=== PATIENT | male | born 1975 ===

== ENCOUNTER 2016-12-20 05:51 | Inpatient (IN) | payer OTHER ==
[2016-12-20] MEDS ORDERED: Absorbable Gelatin Sponge Size 100 ONE (08:02)
[2016-12-20] MEDS ORDERED: Vancomycin 1 g Inj ONE (08:02)
[2016-12-20] MEDS ORDERED: Bupivacaine 0.5% Inj(30mL) ONE (08:03)
[2016-12-20] MEDS ORDERED: ceFAZolin IV 2 gm in Dextrose 2 GM/50 ML BAG IVPB ONE (08:04)
[2016-12-20] MEDS ORDERED: Bacitracin Ointment 30 GM TUBE ONE (08:04)
[2016-12-20] MEDS ORDERED: Sodium Chloride 0.9% 20 ML IV ONE ×2 (08:04→11:43)
[2016-12-20] MEDS ORDERED: Thrombin Topical 5,000 IU Spray Kit ONE (08:04)
[2016-12-20] MEDS ORDERED: Lidocaine/Epi 1% 1:100000 20 ML IJ ONE (08:21)
[2016-12-20] MEDS ORDERED: Bupivacaine Liposomal Inj 20 ml INFIL ONE (08:25)
[2016-12-20] MEDS ORDERED: Bacitracin 50,000 UNIT in Sodium Chloride 0.9% Irrig 1,000 ML IR SCH (08:30)
[2016-12-20] MEDS ORDERED: Propofol 10 mg/ml 1,000 MG/100 ML VIAL ONE ×2 (08:54→11:02)
[2016-12-20] MEDS ORDERED: Remifentanil 1 mg/3 ml Vial IV ONE ×2 (08:55→11:16)
[2016-12-20] MEDS ORDERED: Propofol 10 mg/ml Inj (20 ML) ONE ×2 (09:03→09:50)
[2016-12-20] MEDS ORDERED: Midazolam 2 MG/2 ML VIAL ONE (09:03)
[2016-12-20] MEDS ORDERED: Lactated Ringer's 1,000 ML IV ONE ×2 (09:10→09:15)
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
[2016-12-20] MEDS ORDERED: Dexamethasone 4 mg/1 ml IVP PRN (12:49)
[2016-12-20] MEDS: HYDROmorphone 0.5 mg/0.5 ml ISec IVP PRN ×2 (13:00→13:58)
[2016-12-20] MEDS: Morphine Monoject Barrel PCA 1mg/ml IV PRN (15:15)
[2016-12-20] MEDS: Potassium Ch 20mEq in D5-1/2NS 1,000 ML IV SCH (21:50)
--- NOTE | 2016-12-21 07:31 | OP ---
PROCEDURE DATE: 12/20/2016 PREOPERATIVE DIAGNOSIS: Lumbar disk derangement with chronic low back pain. POSTOPERATIVE DIAGNOSIS: Lumbar disk derangement with chronic low back pain. PROCEDURE: L4-5, decompression diskectomy, interbody fusion, segmental pedicle screw fixation, and posterolateral fusion with iliac autograft. SURGEON: Rito Garcia MD CO-SURGEON: Dr. Adan ANESTHESIA: General endotracheal. ESTIMATED BLOOD LOSS: 250 mL, not enough blood was connected to return to the patient. COMPLICATIONS: None. JUSTIFICATION: The patient is status post an accident suffering from chronic discogenic severe left sided low back pain. MRI documented a very prominent and very eccentric left annular tear at the L4-5 level. He failed rather extensive conservative workup. He was offered the possibility of operative intervention by discectomy, fixation, and fusion. The nature of this procedure in detail was relayed to the patient including alternatives, potential risks, complications, realistic chance of success, residential outlook. All of the above was done through a frame nailer. He fully understood all the above and elected to proceed as offered. DESCRIPTION OF PROCEDURE: The patient was taken to the operating room. He was hooked up to neurophysiological monitoring, intubated and anesthetized, carefully turned onto prone position on a Jerad frame. Care was taken to protect his face, eyes, endotracheal tube, and all bony prominences. The entire low back area was then scrubbed with acetone, scrubbed, painted, and draped in the usual sterile manner. Incision was localized with lateral fluoroscopy. The incision was made overlying the spinous processes of L4 and L5. The Bovie cautery was used to incise the fascia, strip the paraspinal muscles off the spinous processes and laminae again at L4 and L5. Deep self-retaining retractors were placed. The exposure was widened out laterally bilaterally with the use of Osborne elevators and Bovie cautery to expose the transverse processes of L4 and L5 bilaterally. Confirmatory x-ray was taken. The entire L4-5 facet was exposed as well. Bleeding controlled throughout with the Bovie cautery and thrombinated Gelfoam. At this point, once the exposure was completed, we performed bone marrow harvestation. We placed a 5-gauge trocar directly through the fascia into the right superior posterior iliac crest, aspirated approximately 90 mL of bone marrow. This was then spun down to obtain the bone marrow mesenchymal cells that were later used in the bone grafting. At this point, the decompression was begun with the use of the Leksell rongeur. The L5 spinous process and the inferior spinous process of L4 were removed with the Leksell rongeur. The Leksell was further used to thin down the L4 lamina. This bone was later saved for using in the bone graft. Various sized Kerrison rongeurs were then used to perform the laminotomy removing the inferior two-thirds of the L4 lamina, extending this out widely bilaterally to perform a generous medial facetectomy. Foraminotomies was performed at exiting 3 roots. A fair amount of the lateral disk was then exposed with some of the epidural veins coagulated. At this point, we began the discectomy gently retracting the left L5 nerve root easily. The disk was then incised grossly, and the disk material, with the use of pituitary rongeurs and various curettes. An 8 through 11-mm scrapers were then used to further remove disk material, annulus and begin the decortication which was then completed with large curette. The identical procedure was performed back on the right side after which, the disk space was then packed with bone grafting material which included products of decompression, additional allograft, additional bone matrix proteins as well as mesenchymal cell impregnated sponges, liberally packed into the disk space with 69 x 11 mm carbon-fiber fusion cage packed with bone grafting material. This was tapped into the interspace as well as well seated and countersunk. The identical graft and implant was placed back on the original left side. Visual inspection and lateral fluoroscopy confirmed excellent position of both of these implants. At this point, attention was turned to the placement of the pedicular screws. First the high-speed drill was used to decorticate the lateral gutters, which included the transverse processes, lateral pars, and facet. Using the technique of visually and fluoroscopically to identify the pedicular entrance, we used the drill to remove cortical bone passing a gear shift down the barrel of the pedicle into the vertebral body. We then used a ball-tip probe to stimulate the passage way to ensure there was no evidence of breach and then placed the appropriate-sized screw. Additionally, the gear shift and the screws were all stimulated with electrical current while monitoring lower extremity EMG to ensure there was no evidence of breach. Using this technique, a 6.0 diameter screws of 50 and 45 mm length were placed at L4, and a 50 mm length bilaterally at L5. No screw elicited any meaningful EMG activity, and both lateral and AP x-rays confirmed excellent position of all 4 screws. We then placed the appropriate-sized locking narda into the screw head receptacles on each side, locking nuts were placed and torque-wrenched tight. We then placed the appropriate-sized cross connector and torque-wrenched its three connection sites as well. Final lateral and AP x-rays confirmed excellent position of the entire construct. At this point, we liberally packed all remaining graft material into the lateral gutters to achieve the posterolateral fusion. We ensured there was no bony material or anything else foreign in the peridural area. Hemostasis was then achieved with thrombinated powdered Gelfoam and thrombinated Gelfoam placed in the posterior epidural space. Retractors were withdrawn. The muscle re-approximated using interrupted Vicryl, the fascia closed using tight interrupted #0 Vicryl stitch. The wound irrigated with antibiotic solution and the subcu closed in 2 separate layers of 2-0 Vicryl. The skin closed with a running 3-0 Monocryl stitch, benzoin, and Steri-Strips. The dressings were applied. The patient was turned back onto a supine position on a stretcher. He was extubated without difficulty. He was noted to be moving all groups of both lower extremities with good strength on his way to the recovery room. All counts were correct. Final SSEPs and EMGs were at baseline. There were no complications. Rito Garcia MD
[2016-12-21] MEDS: Potassium Ch 20mEq in D5-1/2NS 1,000 ML IV SCH ×2 (07:58→21:19)
--- NOTE | 2016-12-21 09:11 | RAD ---
PROCEDURE: Intraoperative Fluoroscopy. HISTORY: LUMBAR DISC derangement FINDINGS: Fluoroscopic assistance was provided for L4-5 vertebral body fusion and fixation. Please refer to the operative report from
[2016-12-21] MEDS: Morphine Monoject Barrel PCA 1mg/ml IV PRN ×3 (10:50→21:43)
--- NOTE | 2016-12-21 12:58 | CP.PCM.PN ---
Subjective - Date & Time of Evaluation Date of Evaluation: 12/21/16 Time of Evaluation: 12:56 - Subjective Subjective: POD 1 af vss c/o inc pain no LE complaints stood with PT,eating 5/5 throughout sens grossly intact P cont PT/mobilization cont RECONDITIONING ASSOCIATE Objective - Vital Signs/Intake and Output Vital Signs (last 24 hours): Temp Pulse Resp BP Pulse Ox 99.4 F 116 H 20 109/66 98 12/21/16 08:34 12/21/16 08:34 12/21/16 08:34 12/21/16 08:34 12/21/16 08:34 Intake and Output: 12/21/16 12/21/16 06:59 18:59 Intake Total 760 Output Total 900 Balance -140 - Medications Medications: Current Medications Docusate Sodium (Colace) 100 mg PO BID [facility] Last Admin: 12/21/16 10:22 Dose: 100 mg Potassium Chloride/Dextrose/Sod Cl (Potassium Chl 20 Meq In D5-1/2ns) 1,000 mls @ 100 mls/hr IV .Q10H [facility] Last Admin: 12/21/16 07:58 Dose: 100 mls/hr Morphine Sulfate/Sodium Chloride (Morphine Dental Assistant Medical Assistant Monoject Barrel) 30 mg IV Q4H PRN; Protocol PRN Reason: Pain, moderate (4-7) Stop: 12/21/16 13:38 Last Admin: 12/21/16 10:50 Dose: 30 mg Ondansetron HCl (Zofran Inj) 4 mg IVP Q8H PRN PRN Reason: Nausea/Vomiting Pneumococcal Polyvalent Vaccine (Pneumovax 23 Vaccine) 0.5 ml IM .ONCE ONE Stop: 12/22/16 10:46
[2016-12-22] MEDS: Potassium Ch 20mEq in D5-1/2NS 1,000 ML IV SCH ×3 (05:38→17:33)
[2016-12-22] MEDS ORDERED: Pneumococcal 23-Valent Vaccine IM ONE (10:45)
[2016-12-22] MEDS ORDERED: Influenza Vaccine 60 mcg/0.5 mL SYR (4YR UP) IM ONE (10:45)
--- NOTE | 2016-12-22 10:56 | CP.PCM.PN ---
Subjective - Date & Time of Evaluation Date of Evaluation: 12/22/16 Time of Evaluation: 10:54 - Subjective Subjective: SPINE - POD #2 Pt amb in hallway with PT. No complaints. Voiding. + flatus. VSS. Afebrile. Neuro grossly intact. Incision clean and dry. Plan: Cont w therapy. Change to oral analgesics. Hopeful rehab transfer in am. Objective - Vital Signs/Intake and Output Vital Signs (last 24 hours): Temp Pulse Resp BP Pulse Ox 98.8 F 115 H 18 121/77 98 12/22/16 07:40 12/22/16 07:40 12/22/16 07:40 12/22/16 07:40 12/22/16 07:40 Intake and Output: 12/22/16 12/22/16 06:59 18:59 Intake Total 800 Output Total 800 Balance 0 - Medications Medications: Current Medications Docusate Sodium (Colace) 100 mg PO BID [facility] Last Admin: 12/22/16 10:24 Dose: 100 mg Potassium Chloride/Dextrose/Sod Cl (Potassium Chl 20 Meq In D5-1/2ns) 1,000 mls @ 100 mls/hr IV .Q10H [facility] Last Admin: 12/22/16 05:38 Dose: 100 mls/hr Morphine Sulfate/Sodium Chloride (Morphine Mine Car Dispatcher Monoject Barrel) 30 mg IV Q4H PRN; Protocol PRN Reason: Pain Last Admin: 12/21/16 21:43 Dose: 30 mg Ondansetron HCl (Zofran Inj) 4 mg IVP Q8H PRN PRN Reason: Nausea/Vomiting
[2016-12-22] MEDS ORDERED: Oxycodone/Acetaminophen 5/325 mg Tab PO PRN (10:57)
[2016-12-22] MEDS: oxyCODONE 20 mg ER Tab (oxyCONTIN) PO SCH ×2 (12:00→22:26)
[2016-12-22] MEDS: Psyllium Packet PO SCH (12:01)
[2016-12-22] MEDS: Oxycodone/Acetaminophen 5/325 mg Tab PO PRN (15:17)
[2016-12-23] MEDS: Potassium Ch 20mEq in D5-1/2NS 1,000 ML IV SCH (02:45)
[2016-12-23] MEDS: Psyllium Packet PO SCH (09:49)
[2016-12-23] MEDS: Oxycodone/Acetaminophen 5/325 mg Tab PO PRN (09:49)
[2016-12-23] MEDS: oxyCODONE 20 mg ER Tab (oxyCONTIN) PO SCH ×2 (10:58→21:20)
[2016-12-23] MEDS ORDERED: clonazePAM 0.25 MG TAB PO SCH ×2 (12:30→21:00)
--- NOTE | 2016-12-23 14:14 | CP.PCM.PN ---
Subjective - Date & Time of Evaluation Date of Evaluation: 12/23/16 Time of Evaluation: 14:10 - Subjective Subjective: SPINE - POD #3 Pt resting in bed. States he is feeling much better.Had therapy earlier and did stairs. Has had episodes of tachycardia. Afebrile. Moves all extremities actively. Neuro intact. Plan: Will check H/H. Restarted his Klonopin and Celexa. If stable will d/c in am to home. Objective - Vital Signs/Intake and Output Vital Signs (last 24 hours): Temp Pulse Resp BP Pulse Ox 98.6 F 88 17 116/73 94 L 12/23/16 07:00 12/23/16 10:58 12/23/16 07:00 12/23/16 10:58 12/23/16 07:00 Intake and Output: 12/23/16 12/23/16 06:59 18:59 Intake Total 1320 Output Total 800 Balance 520 - Medications Medications: Current Medications Citalopram Hydrobromide (Celexa) 20 mg PO DAILY [facility] Clonazepam (Klonopin- Half Tab) 0.25 mg PO DAILY [facility] Docusate Sodium (Colace) 100 mg PO BID [facility] Last Admin: 12/23/16 09:48 Dose: 100 mg Ondansetron HCl (Zofran Inj) 4 mg IVP Q8H PRN PRN Reason: Nausea/Vomiting Oxycodone HCl (Oxycontin Extended Release Tab) 20 mg PO Q12 [facility] Last Admin: 12/23/16 10:58 Dose: 20 mg Oxycodone/Acetaminophen (Percocet 5/325 Mg Tab) 1 tab PO Q4H PRN PRN Reason: Pain, Mild (1-3) Stop: 12/25/16 10:58 Oxycodone/Acetaminophen (Percocet 5/325 Mg Tab) 2 tab PO Q4H PRN PRN Reason: Pain, moderate (4-7) Stop: 12/25/16 10:59 Last Admin: 12/23/16 09:49 Dose: 2 tab Psyllium Hydrophilic Mucilloid (Hydrocil Instant) 1 pkt PO DAILY [facility] Last Admin: 12/23/16 09:49 Dose: 1 pkt
[2016-12-23 14:16] VITALS: RESP 20
[2016-12-23 17:01] LABS: HEMATOCRIT 33.5 % (35.0-51.0)
[2016-12-24] MEDS: Oxycodone/Acetaminophen 5/325 mg Tab PO PRN (06:52)
[2016-12-24] MEDS: Psyllium Packet PO SCH (09:26)
[2016-12-24] MEDS: oxyCODONE 20 mg ER Tab (oxyCONTIN) PO SCH (09:26)
[2016-12-24 09:37] VITALS: O2SAT 97
[2016-12-24 14:38] VITALS: BP 120/79; PULSE 97; TEMP 98.2
== END 2016-12-24 13:58 | disposition home or self-care (01) | DRG 460 ==
LOC: C.9S 05:51 → C.6T 13:55
PROVIDERS: ADMIT Neurological Surgery; ATTEND Neurological Surgery
PROC: 0SG00AJ Fusion of Lumbar Vertebral Joint with Interbody Fusion Device, Posterior Approach, Anterior Column, Open Approach (ICD-10-PCS; 2016-12-20)
PROC: 0QB20ZZ Excision of Right Pelvic Bone, Open Approach (ICD-10-PCS; 2016-12-20)
PROC: 07DR3ZZ Extraction of Iliac Bone Marrow, Percutaneous Approach (ICD-10-PCS; 2016-12-20)
PROC: 0SB20ZZ Excision of Lumbar Vertebral Disc, Open Approach (ICD-10-PCS; principal; 2016-12-20 09:00)
DX: M51.16 Intervertebral disc disorders with radiculopathy, lumbar region (principal); M53.86 Other specified dorsopathies, lumbar region; G89.29 Other chronic pain; J45.909 Unspecified asthma, uncomplicated; F41.9 Anxiety disorder, unspecified; W17.89XS Other fall from one level to another, sequela; Z87.81 Personal history of (healed) traumatic fracture